=== PATIENT | female | born 1975 | race Two or more races ===

== ENCOUNTER 2016-07-22 21:14 | Emergency (ER) | payer OTHER | END 2016-07-23 04:20 | disposition home or self-care (01) | LOC: CED 21:14 | DX: S46.911A Strain of unspecified muscle, fascia and tendon at shoulder and upper arm level, right arm, initial encounter (principal); X58.XXXA Exposure to other specified factors, initial encounter; Y93.89 Activity, other specified; Y92.69 Other specified industrial and construction area as the place of occurrence of the external cause; Y99.0 Civilian activity done for income or pay | CPT/HCPCS: 99283 ==

== ENCOUNTER 2016-07-27 22:24 | Observation (INO) | payer OTHER ==
--- NOTE | ~2016-07-27 | HP ---
Unit #: [id number] #: [id number] Patient: DANE MATOS [id number] [address] [address] [id number] I MR#: [id number] NAME: DANE MATOS ROOM: 310 Age: 40 Sex: F Admission Date: 07/28/2016 : 1975 Attending Physician: Espinoza Grier M.D. Primary Care Physician: No Primary Care Physician HISTORY AND PHYSICAL ADDENDUM The patient was admitted with chest discomfort. Myocardial infarction was ruled out. She underwent a Cardiolite treadmill stress test which was negative for ischemia. She underwent 2D echocardiogram that at time of this dictation results are pending. The patient is able to be discharged home. She was not on any medications except just recent treatment for some shoulder pain and she may resume her Flexeril and meloxicam as needed. Recommend to follow up with her primary care physician in two to three weeks. Dictated by Lebron Suh/ramón TD: 07/29/2016 08:58 JOB #: [id number] HISTORY AND PHYSICAL Page 1 of 1 X X HISTORY AND PHYSICAL
--- NOTE | ~2016-07-27 | ST ---
Unit #: [id number] #: [id number] Patient: DANE MATOS [id number] [address] [address] [id number] I MR#: [id number] NAME: DANE MATOS : 1975 SEX: F STUDY DATE/TIME: 07/28/2016 UNIT: C3A PCU ROOM: 310 STUDY DESCRIPTION: EKG stress test Attending Physician: Espinoza Grier M.D. Primary Care Physician: No Primary Care Physician CARDIOLOGY REPORT EXAM Combined EKG and nuclear part of the test. FINDINGS Patient's baseline heart rate is 75 beats per minute and blood pressure is 135/95. Patient exercised on a standard Alex protocol for 4 minutes and achieved peak heart rate of 166 beats per minute, which is 93% of predicted heart rate. Peak blood pressure 152/96. Patient's baseline EKG showing normal sinus rhythm, normal EKG. During exercise and recovery, no significant ST-T change. Patient also received 10.8 mCi of Cardiolite at rest and then 32.1 mCi of Cardiolite during stress. Both sets of images were compared. Patient shows fairly uniform uptake of radiotracer. No defect was noted. Patient also had gated SPECT scan done, which showed normal LV size and function. No wall motion abnormality detected. Ejection fraction 54%. INTERPRETATION OF THE TEST 1. Poor exercise tolerance. 2. EKG part of the test negative for stress-induced ischemia. 3. Nuclear part of the test negative for myocardial ischemia. 4. Gated SPECT scan shows normal LV size and function. Dictated by... Kathryn Burgos/chas TD: 07/29/2016 06:26 JOB #: [id number] CARDIOLOGY REPORT Page 1 of 1 X Duke Pereyra MD CARDIOLOGY REPORT
--- NOTE | ~2016-07-27 | CR72 ---
[facility] A Service of [facility] & [facility] / [facility] RADIOLOGY TEXT RESULTS PATIENT: DANE MATOS LOCATION: [facility] 310-01 : [birth year] UNIT #: [id number] AGE: [address]: Espinoza Grier MD SEX: F ORDER DR: [id number] [facility] [place], [place] [address] [id number] I MR#: [id number] Acc #: [id number] NAME: DANE MATOS : 1975 SEX: F STUDY DATE/TIME: 07/28/2016 0:10 [facility] RO[facility]: 310 STUDY DESCRIPTION: CR Chest Single View Portable Attending Physician: Espinoza Grier M.D. Ordering Physician: Michelle Malloy M.D. Primary Care Physician: Primary Care Physician No MEDICAL IMAGING REPORT This report is preliminary unless electronic signature is present EXAM Single view chest INDICATIONS Chest pain for 2 days. FINDINGS Single portable AP view of the chest without comparison. Heart and mediastinal contours are normal. Lungs are clear. IMPRESSION No acute findings. Dictated by... Cuate Ellis M.D. THIS IS AN ELECTRONICALLY VERIFIED REPORT Cuate Ellis M.D. at 07/31/2016 12:50 AM RPC/burke TD: 07/28/2016 03:44 JOB #: [id number] MEDICAL IMAGING REPORT Page 1 of 1 COPY
--- NOTE | ~2016-07-27 | EKG ---
PATIENT: DANE MATOS UNIT #: [id number] Ventricular Rate: 66 BPM Atrial Rate: 66 BPM P-R Interval: 120 ms QRS Duration: 84 ms Q-T Interval: 380 ms QTC Calculation(Bezet): 398 ms P Baldwin: 50 degrees Calculated R Baldwin: 46 degrees Calculated T Baldwin: 42 degrees Diagnosis Line: Normal sinus rhythm Diagnosis Line: Normal ECG Diagnosis Line: No previous ECGs available Diagnosis Line: Confirmed by TEE CRUZ MD ([id number]) on Diagnosis Line: 07/29/2016 8:46:21 AM INTERPRETING MD: NANCY BOONE
--- NOTE | ~2016-07-27 | EKG ---
PATIENT: DANE MATOS UNIT #: [id number] Ventricular Rate: 55 BPM Atrial Rate: 55 BPM P-R Interval: 128 ms QRS Duration: 86 ms Q-T Interval: 432 ms QTC Calculation(Bezet): 413 ms P [place]: 48 degrees Calculated R [place]: 27 degrees Calculated T [place]: 22 degrees Diagnosis Line: Sinus bradycardia Diagnosis Line: Otherwise normal ECG Diagnosis Line: When compared with ECG of 27-JUL-2016 22:43, Diagnosis Line: (unconfirmed) Diagnosis Line: No significant change was found Diagnosis Line: Confirmed by TEE CRUZ MD ([id number]) on Diagnosis Line: 07/29/2016 8:47:08 AM INTERPRETING MD: NANCY BOONE
--- NOTE | ~2016-07-27 | TH ---
Unit #: [id number] #: [id number] Patient: DANE MATOS [id number] [address] [address] [id number] I MR#: [id number] NAME: DANE MATOS : 1975 SEX: F STUDY DATE/TIME: 07/28/2016 UNIT: C3A PCU ROOM: 310 STUDY DESCRIPTION: Nuclear stress test Attending Physician: Espinoza Grier M.D. Primary Care Physician: No Primary Care Physician CARDIOLOGY REPORT EXAM Nuclear stress test. FINDINGS Result text under EKG stress test. Please see this report for result text. Dictated by... Kathryn Burgos/chas TD: 07/29/2016 06:23 JOB #: [id number] CARDIOLOGY REPORT Page 1 of 1 X Duke Pereyra MD CARDIOLOGY REPORT
--- NOTE | ~2016-07-27 | HP ---
Unit #: [id number] #: [id number] Patient: DANE MATOS [id number] [address] [address] [id number] I MR#: [id number] NAME: DANE MATOS ROOM: 310 Age: 40 Sex: F Admission Date: 07/28/2016 : 1975 Attending Physician: Espinoza Grier M.D. Primary Care Physician: No Primary Care Physician HISTORY AND PHYSICAL CHIEF COMPLAINT Chest pain. HISTORY OF PRESENT ILLNESS Ms. Matos is a 40-year-old female who does speak Tristanian, who presented with complaints of chest discomfort. She states she was here in the other day because of shoulder pain. She was given meloxicam, Flexeril and prednisone. She says since then she has not been feeling well. She has had chest discomfort. Her hands have been cold and tingly and she was worried about this because she denies any past medical history. She takes not medications. States nothing is usually wrong with her and so she thought she should come into the hospital. She described it as a central chest pressure. She had some shortness of air, dizziness and hands were tingling. PAST MEDICAL HISTORY She denies dyslipidemia. Denies hypertension. Denies diabetes. Denies arteriosclerotic heart disease. No heart procedures. No family history for premature cardiac . No tobacco. PAST SURGICAL HISTORY Appendectomy, , throat surgery. SOCIAL HISTORY Denies tobacco. Denies alcohol. FAMILY HISTORY Negative for premature cardiac . Positive for family history of arteriosclerotic heart disease. HOME MEDICATIONS Flexeril 10 mg 3 times daily; prednisone 40 mg daily for three days; meloxicam p.r.n. ALLERGIES Erythromycin, amitriptyline. REVIEW OF SYSTEMS Negative fevers. Negative chills. No ear problems. No eye problems. No pain. No difficulty swallowing. No cough. No shortness of air. No dyspnea on exertion. No Crohn. No colitis. No melena. No bright red bleeding per rectum. No hematuria. No dysuria. No lower extremity edema. No seizures. No gait disturbance. Unit #: [id number] #: [id number] Patient: DANE MATOS PHYSICAL EXAMINATION GENERAL: Well developed, well nourished, female in no acute distress. VITAL SIGNS: Blood pressure 126/83, pulse 87, respirations 16, 5'4", 80 kg, BMI 30. HEENT: Normocephalic atraumatic. No xanthelasma. Pupils equal, round, reactive to light. Extraocular movements intact. NECK: No JVD distention. No elevated CVP. Neck is supple. No thyromegaly. LUNGS: Clear to auscultation anteriorly, posteriorly and bilaterally. HEART: S1 and S2. No S3. No S4. No murmurs, rubs, or gallops. No lift. PMI nondisplaced. ABDOMEN: Soft, nontender, and nondistended. EXTREMITIES: No clubbing, cyanosis or edema. 2+ pulses bilaterally. NEUROLOGIC: Moving all extremities spontaneously with equal strength. No facial drooping. Speech is clear and appropriate. DIAGNOSTIC STUDIES LABORATORY STUDIES: Chemistry - sodium 137, potassium 3.6, chloride 105, CO2 26, BUN 18, creatinine 0.6, glucose 137. AST 12, ALT 11. Troponin less than 0.03. BNP 30. PT 10.1, INR 1.0, PTT 25.8, D-dimer 366. Point of care troponin less than 0.05. Hemoglobin 11.4, hematocrit 36, white blood cell count 12.5, platelet count 342. CARDIOLOGY STUDIES: 12 lead EKG shows normal sinus rhythm to sinus bradycardia, ventricular rate 55, no acute ST elevation, no acute ST depression on two separate 12 lead EKGs. ASSESSMENT AND PLAN Atypical chest discomfort with two negative troponins. Negative EKG. We will check an echocardiogram and a stress test. Cardiolite treadmill stress test. If negative she will be discharged home later today. Dictated by Lebron Suh/ruby TD: 07/28/2016 09:23 JOB #: [id number] HISTORY AND PHYSICAL Page 1 of 1 X X HISTORY AND PHYSICAL
[2016-07-28 00:19] LABS: BASOPHIL% 0.2 % (0-2.5); EOSINOPHIL# 0.1 X10e3 (0-0.7); EOSINOPHIL% 0.4 % (0.0-7.0); HEMOGLOBIN 11.4 gm/dL (12.0-16.0); LYMPHOCYTE# 1.7 X10e3 (1.0-3.5); LYMPHOCYTE% 13.3 % (17.0-45.0); MEAN CELL VOLUME 79.4 FL (83-96); MEAN CORPUSCULAR HEMOGLOBIN 25.1 PG (28-34); MEAN CORPUSCULAR HGB CONC 31.7 g/dL (30-36); MEAN PLATELET VOLUME 8.3 FL (6.5-11.5); MONOCYTE# 0.9 X10e3 (0-1.0); MONOCYTE% 6.8 % (3.0-12.0); NEUTROPHIL# 9.9 X10e3 (1.5-7.1); NEUTROPHIL% 79.3 % (40-75); PLATELET COUNT 342 X10e3 (140-420); RED BLOOD COUNT 4.54 X10e (3.90-5.30); RED CELL DISTRIBUTION WIDTH 18.1 % (11.0-15.5); WHITE BLOOD COUNT 12.5 X10e3 (4.0-10.5)
[2016-07-28 00:23] LABS: DIFF IND NO
[2016-07-28 00:43] LABS: PARTIAL THROMBOPLASTIN TIME 25.8 SECONDS (23.5-31.3); PROTHROMBIN TIME (PATIENT) 10.1 SECONDS (9.6-11.5)
[2016-07-28 00:54] LABS: ALBUMIN SERUM 3.6 g/dL (3.5-5.0); ALKALINE PHOSPHATASE 67 U/L (32-92); ALT (SGPT) 11 U/L (10-40); AST (SGOT) 12 U/L (10-42); BILIRUBIN, DIRECT <0.1 mg/dL (0.0-0.2); BILIRUBIN,INDIRECT 0.3 mg/dL (0.0-0.9); BILIRUBIN,TOTAL 0.4 mg/dL (0.2-2.0); BLOOD UREA NITROGEN 18 mg/dL (9-23); CALCIUM SERUM 8.9 mg/dL (8.4-10.2); CARBON DIOXIDE 26 mmol/L (22-31); CHLORIDE 105 mmol/L (100-111); CREATININE SERUM 0.6 mg/dL (0.6-1.4); GLOM FILT RATE Estimated 112.4 mL/min (>60); GLUCOSE FASTING 137 mg/dL (70-110); POTASSIUM 3.6 mmol/L (3.5-5.1); PROTEIN TOTAL SERUM 6.8 g/dL (6.0-8.3); SODIUM 137 mmol/L (135-145)
[2016-07-28] MEDS ORDERED: FLEXERIL10 MG PO (03:15)
[2016-07-28] MEDS ORDERED: DELTASONE20 MG PO (03:16)
[2016-07-28 08:08] LABS: POC - CKMB <1.0 ng/mL (0.0-7.9); POC - TROPONIN <0.05 ng/mL (<=0.05)
[2016-07-28 10:57] LABS: CHOLESTEROL 174 mg/dL (0-200); HDL CHOLESTEROL 63 mg/dL (35-95); LDL CHOLESTEROL 97 mg/dL (-130); LDL/HDL RATIO 2 RATIO (0-4); TRIGLYCERIDES 68 mg/dL (10-160)
== END 2016-07-28 17:40 | disposition home or self-care (01) ==
LOC: CED 22:24 → CEDOF 07-28 02:00 → CED 07-28 02:05 → CEDOF 07-28 02:05 → C3A PCU 07-28 03:52 → CEDOF 07-28 03:52 → C3A PCU 07-28 17:40
PROVIDERS: Emergency Medicine; Internal Medicine Cardiovascular Disease
DX: R07.89 Other chest pain (principal); I34.0 Nonrheumatic mitral (valve) insufficiency; I37.1 Nonrheumatic pulmonary valve insufficiency; I51.9 Heart disease, unspecified; Z79.899 Other long term (current) drug therapy; M25.519 Pain in unspecified shoulder; Z82.49 Family history of ischemic heart disease and other diseases of the circulatory system; Z98.890 Other specified postprocedural states; Z88.1 Allergy status to other antibiotic agents
CPT/HCPCS: 36415; 71010; 78452; 80048; 80061; 80076; 82553; 83880; 84443; 84484; 84703; 85025; 85379; 85610; 85730; 93005; 93017; 93306; 99285; A9500; G0378